=== PATIENT | female | born 1985 | race Caucasian/White ===

== ENCOUNTER 2025-02-17 23:45 | Emergency (ER) | payer OTHER ==
[~2025-02-17] VITALS: Ht 162.6 cm; Wt 59.0 kg
[2025-02-18 00:25] VITALS: BP 98/76; TEMP 98.1
[2025-02-18] MEDS ORDERED: NEOM10DR11 RIGHT EAR (01:40)
[2025-02-18] MEDS: NEOM/POLY B SULF/HC OTIC SUSP 10 ML BOTTLE OT ONE (02:01)
[2025-02-18 02:17] VITALS: O2SAT 96
== END 2025-02-18 02:17 | disposition home or self-care (01) ==
LOC: ER 02-18 00:09
DX: T16.1XXA Foreign body in right ear, initial encounter (principal); W44.8XXA Other foreign body entering into or through a natural orifice, initial encounter; Y93.89 Activity, other specified; Y92.89 Other specified places as the place of occurrence of the external cause; Y99.8 Other external cause status